=== PATIENT | female | born 1995 | race African-American/Black ===

== ENCOUNTER 2019-02-16 16:31 | Emergency (ER) | payer BC, OTHER ==
--- NOTE | 2019-02-16 17:01 | PDOC ---
Rapid Medical Evaluation Chief Complaint: Respiratory Time Seen by Provider: 02/16/19 17:00 Medical Evaluation: 02/16/19 17:00 I did a brief in person evaluation on this patient. CC: cough HPI: Pt has a cough x 2 days. PE: Skin: Clear Lungs: Clear Heart:RRR Abd: soft, non tender MS: Moves all extremities without difficulty Neuro: alert Psych: appropriate affect. Pt will proceed to [facility] for further evaluation. Discharge Disposition - Diagnosis Common cold - Referrals - Patient Instructions - Post Discharge Activity
[2019-02-16 17:03] VITALS: BP 127/86; PULSE 80; TEMP 98.5; BMI 25.8
--- NOTE | 2019-02-16 17:25 | PDOC ---
History of Present Illness - General Chief Complaint: Respiratory Stated Complaint: RIGHT EAR PAIN Time Seen by Provider: 02/16/19 17:00 - History of Present Illness Initial Comments: 02/16/19 17:22 23-year-old female without comorbidities presents for 3 days of nasal congestion and right ear pain without systemic symptoms Past History - Past Medical History Allergies/Adverse Reactions: Allergies Allergy/AdvReac Type Severity Reaction Status Date / Time No Known Allergies Allergy Verified 02/16/19 17:03 Home Medications: Ambulatory Orders Amox-Tr/K Cl [Augmentin - 875Mg Tablet] 1 tab PO BID #20 tablet 02/16/19 Budesonide [Rhinocort Allergy] 1 spray NS ONCE #1 spray.pump 02/16/19 COPD: No Liver Disease: No - Immunization History Immunization Up to Date: No - Suicide/Smoking/Psychosocial Hx Smoking History: Current every day smoker Have you smoked in the past 12 months: Yes Information on smoking cessation initiated: No Hx Alcohol Use: No Drug/Substance Use Hx: No Review of Systems - Review of Systems Constitutional: No: Fever HEENTM: Yes: Ear Pain, Nose Congestion *Physical Exam - Vital Signs Last Vital Signs Temp Pulse Resp BP Pulse Ox 98.5 F 80 18 127/86 100 02/16/19 17:00 02/16/19 17:00 02/16/19 17:00 02/16/19 17:00 02/16/19 17:00 - Physical Exam Comments: 02/16/19 17:22 HEAD: NC/AT EYES: Conjuntiva clear Ears: Left ear canal is normal tympanic membrane is mildly erythematous and bulging right ear canal is normal tympanic membrane is erythemic and bulging NOSE: Injected turbinates clear discharge THROAT: Moist mucous membrances, oral pharanx clear, uvula midline NECK: Supple without adenopathy CARDIAC: S1 S2 LUNGS: CTA Full and Equal breath sounds ABDOMEN: Soft NT ND MS: Full ROM in all joints without edema NEUROLOGIC: No gross sensory or motor deficits, NVID SKIN: Normal color and temperature no lesions or rashes Medical Decision Making - Medical Decision Making 02/16/19 17:23 We'll treat for bacterial sinusitis with otitis media component *DC/Admit/Observation/Transfer Diagnosis at time of Disposition: Sinusitis, Otitis media Diagnosis at time of Disposition: (Ruled Out): Common cold - Discharge Dispostion Disposition: HOME Condition at time of disposition: Stable Decision to Admit order: No - Referrals Referrals: Baldo Chavez MD [Staff Physician] - - Patient Instructions Printed Discharge Instructions: Sinusitis, DI for Sinusitis, Middle Ear Infection Additional Instructions: Please follow-up with ENT in one to 2 days for further evaluation and treatment options. Please take the antibiotics in the nasal spray as directed return to the emergency room for worsening symptoms. - Post Discharge Activity
== END 2019-02-16 17:37 | disposition home or self-care (01) ==
LOC: JERFT 16:31
DX: J01.90 Acute sinusitis, unspecified (principal); H66.91 Otitis media, unspecified, right ear
CPT/HCPCS: 99281-25

== ENCOUNTER 2019-04-05 21:08 | Emergency (ER) | payer BC, OTHER | END 2019-04-06 03:34 | disposition home or self-care (01) | LOC: JER 04-06 03:34 | PROC: 3E033GC Introduction of Other Therapeutic Substance into Peripheral Vein, Percutaneous Approach (ICD-10-PCS; principal; 2019-04-05) | PROC: 3E033GC Introduction of Other Therapeutic Substance into Peripheral Vein, Percutaneous Approach (ICD-10-PCS; 2019-04-05) | PROC: 3E033NZ Introduction of Analgesics, Hypnotics, Sedatives into Peripheral Vein, Percutaneous Approach (ICD-10-PCS; 2019-04-05) | DX: S09.8XXD Other specified injuries of head, subsequent encounter (principal); R51 Headache; W22.8XXD Striking against or struck by other objects, subsequent encounter ==